=== PATIENT | male | born 1945 | race Hispanic/Latino ===

== ENCOUNTER 2019-12-01 09:09 | Outpatient (CLI) | payer MEDICARE ==
--- NOTE | 2019-12-01 11:14 | Vascular Lab Report ---
Duplex arterial ultrasound of the kidneys INDICATION: Hypertension FINDINGS: Right kidney measures 10 cm in length with the left measuring 12 cm. There is good cortical thickness bilaterally velocity in the proximal right renal artery is 200 cm/s. Aortic velocity is a round 100 for ratio of 2.0. The remaining velocities are all under 200 cm/s. No definite evidence for renal arterial hypertension. Signer Name: Ted Oneil MD Signed: 12/01/2019 11:10 AM Workstation Name: [id number]
== END 2019-12-01 09:10 | disposition home or self-care (01) ==
LOC: VAS 09:09
PROVIDERS: ATTEND Internal Medicine
DX: I34.0 Nonrheumatic mitral (valve) insufficiency (principal)
CPT/HCPCS: 93306; 93975